=== PATIENT | female | born 1960 | race Caucasian/White ===

== ENCOUNTER 2018-06-28 06:27 | Day surgery (SDC) | payer OTHER ==
[2018-06-28] MEDS ORDERED: Lactated Ringers 1,000 ML IV SCH (06:45)
[2018-06-28] MEDS ORDERED: Lidocaine 2% 100 MG/5 ML Syringe IVPUSH ONE (07:45)
[2018-06-28] MEDS ORDERED: Propofol 200 MG/20 ML SDV IV ONE (07:45)
--- NOTE | 2018-06-28 08:08 | PCM.OPNOTE ---
- General Post-Op/Procedure Note Date of Surgery/Procedure: 06/28/18 Operative Procedure(s): egd with bx Findings: gastritis esophagitis Pre Op Diagnosis: abd pain epigastric Post-Op Diagnosis: gastritis. esophagitis Anesthesia Technique: MAC Primary Surgeon: Ari Reilly Anesthesia Provider: Jonel Mack Pathology: stomach and esophagus Complications: None Condition: Good Free Text/Narrative:: see dictation
--- NOTE | 2018-06-28 09:15 | OR ---
DATE OF OPERATION: 06/28/2018 SURGEON: Ari Reilly MD PROCEDURE PERFORMED: Upper endoscopy with cold forceps biopsy. PREOPERATIVE DIAGNOSIS: Epigastric abdominal pain. POSTOPERATIVE DIAGNOSES: Gastritis and esophagitis. INDICATIONS FOR PROCEDURE: This is a 58-year-old white female who presents with the above-mentioned complaints. She was offered and accepted an EGD. DESCRIPTION OF PROCEDURE: After an excellent IV sedation was administered, the bite block was inserted, the flexible endoscope was passed without difficulty down the patient's esophagus into the stomach. The stomach was insufflated, scope was passed through the pylorus to the second portion of the duodenum, and then slowly withdrawn. The following findings were noted. The duodenum is unremarkable. Stomach especially in the area of the antrum demonstrated marked gastritis. Biopsies and photos were taken. GE junction measured approximately 38 cm. It was noted to be irregular with erythema proximal to this. Circumferential biopsies were taken. The remainder of the esophageal exam was unremarkable. Stomach was deflated. Scope was removed. The patient tolerated the procedure and was taken to recovery in good condition. /[id number] 900 /TELMAL
[2018-06-28 14:36] VITALS: BP 115/71
== END 2018-06-28 09:13 | disposition home or self-care (01) ==
LOC: FB.SDS 06:27
PROVIDERS: ATTEND Surgery
DX: K29.50 Unspecified chronic gastritis without bleeding (principal); K20.9 Esophagitis, unspecified; F41.1 Generalized anxiety disorder; E04.9 Nontoxic goiter, unspecified; E66.9 Obesity, unspecified; Z68.35 Body mass index [BMI] 35.0-35.9, adult; Z79.899 Other long term (current) drug therapy; Z91.040 Latex allergy status; Z91.048 Other nonmedicinal substance allergy status; Z87.891 Personal history of nicotine dependence
CPT/HCPCS: 43239; 88305; 88313; 88342; J2001; J2704; J7120

== ENCOUNTER 2021-04-03 00:52 | Emergency (ER) | payer OTHER ==
[2021-04-03 01:12] VITALS: BP 115/74; PULSE 65
--- NOTE | 2021-04-03 01:19 | EDM.PDOC ---
ED HPI GENERAL MEDICAL PROBLEM - General Stated Complaint: BLOOD TEST Time Seen by Provider: 04/03/21 01:17 Source of Information: Reports: Patient History Limitations: Reports: No Limitations - History of Present Illness INITIAL COMMENTS - FREE TEXT/NARRATIVE: Tish would like a blood alcohol test. She was pulled over due to DUI-and wants a blood test to confirm. She states that she had taken 3 beers earlier. She has no other complaints - Related Data Allergies Allergy/AdvReac Type Severity Reaction Status Date / Time Latex, Natural Rubber Allergy Rash Verified 09/23/15 07:13 METALS Allergy Rash Uncoded 09/23/15 07:13 Home Meds: Home Meds Aspirin [Low Dose Aspirin EC] 81 mg PO DAILY 09/20/15 [History] Calcium Carbonate/Vitamin D3 [Calcium 600 + Vit D 200] 1 each PO DAILY 09/20/15 [History] Citalopram [Citalopram HBr] 10 mg PO DAILY 09/20/15 [History] Multivitamin [Multi-Vitamin Daily] 1 each PO DAILY 09/20/15 [History] hydrOXYzine Pamoate [Hydroxyzine Pamoate] 25 mg PO BID 09/20/15 [History] Acetaminophen [Acetaminophen Extra Strength] 500 mg PO Q4H PRN 06/27/18 [History] Ibuprofen [Advil] 200 - 600 mg PO ASDIRECTED PRN 06/27/18 [History] Omeprazole 20 mg PO DAILY 06/27/18 [History] Zolpidem Tartrate 5 mg PO BEDTIME 06/27/18 [History] buPROPion [buPROPion XL] 150 mg PO DAILY 06/27/18 [History] Past Medical History HEENT History: Reports: Impaired Vision Cardiovascular History: Reports: Blood Clots/VTE/DVT Other Cardiovascular History: DVT OF LEFT LEG Respiratory History: Reports: None Gastrointestinal History: Reports: Colon Polyp Genitourinary History: Reports: None PC ANALYST History: Reports: Other PC ANALYST History: 2 C SECTIONS, HYSTERECTOMY;. IV PARA IV Musculoskeletal History: Reports: Back Pain, Chronic Neurological History: Reports: Migraines Psychiatric History: Reports: Anxiety, Depression Endocrine/Metabolic History: Reports: None Hematologic History: Reports: None Immunologic History: Reports: None Oncologic (Cancer) History: Reports: None Dermatologic History: Reports: None - Infectious Disease History Infectious Disease History: Reports: Chicken Pox - Past Surgical History Head Surgeries/Procedures: Reports: None HEENT Surgical History: Reports: Adenoidectomy, Tonsillectomy GI Surgical History: Reports: Colonoscopy Female Surgical History: Reports: Section, Hysterectomy Social & Family History - Family History Family Medical History: No Pertinent Family History - Caffeine Use Caffeine Use: Reports: Coffee, Soda ED ROS GENERAL - Review of Systems Review Of Systems: Comprehensive ROS is negative, except as noted in HPI. ED EXAM, GENERAL - Physical Exam Exam: See Below Exam Limited By: Intoxication General Appearance: Alert, WD/WN Neurological: Alert, Oriented Psychiatric: Normal Affect Skin Exam: Warm Course - Vital Signs Last Recorded V/S: Last Vital Signs Temp 98.2 F 04/03/21 01:04 Pulse 65 04/03/21 01:04 Resp 16 04/03/21 01:04 BP 115/74 04/03/21 01:04 Pulse Ox 95 04/03/21 01:04 - Orders/Labs/Meds Labs: Laboratory Tests 04/03/21 Range/Units 01:15 Ethyl Alcohol 0.11 H (<0.03) % Departure - Departure Time of Disposition: :19 Disposition: Home, Self-Care 01 Condition: Good Clinical Impression: Elevated ETOH level - Discharge Information Referrals: Deirdre Pearson, EMPLOYMENT COORDINATOR [Primary Care Provider] - Forms: ED Department Discharge Sepsis Event Note (ED) - Evaluation Sepsis Screening Result: No Definite Risk - Problem List & Annotations (1) Elevated ETOH level SNOMED Code(s): 220738228 Code(s): R78.0 - FINDING OF ALCOHOL IN BLOOD Status: Acute - Problem List Review Problem List Initiated/Reviewed/Updated: Yes - Assessment/Plan Plan: Test was done and handed to her.
== END 2021-04-03 01:36 | disposition home or self-care (01) ==
LOC: FB.ED 00:52
DX: R78.0 Finding of alcohol in blood (principal); Y90.5 Blood alcohol level of 100-119 mg/100 ml; Z79.82 Long term (current) use of aspirin; Z79.899 Other long term (current) drug therapy
CPT/HCPCS: 36415; 80307; 99281; 99282

== ENCOUNTER 2024-07-31 17:26 | Emergency (ER) | payer OTHER ==
[2024-07-31 18:14] VITALS: BP 128/68; PULSE 67
[2024-07-31 18:23] LABS: BLOOD UREA NITROGEN,BUN 18 mg/dL (7-18); CALCIUM 9.6 mg/dL (8.6-10.2); CARBON DIOXIDE,CO2 30 mmol/L (21-32); CHLORIDE,CL 102 mmol/L (100-110); CREATININE 0.6 mg/dL (0.55-1.02); EST CRCL DRUG DOSING (CG) 85.24 mL/min; ESTIMATED GFR 100 mL/min (>60); GLUCOSE RANDOM 82 mg/dL (80-116); POTASSIUM,K 4.2 mmol/L (3.5-5.3); SODIUM,NA 140 mmol/L (135-145)
[2024-07-31] MEDS: Iopamidol 755 Mg/ML 100 ML Bottle IV SCH (18:59)
== END 2024-07-31 19:51 | disposition home or self-care (01) ==
LOC: FB.ED 17:26
DX: M54.6 Pain in thoracic spine (principal); Z90.710 Acquired absence of both cervix and uterus; Z79.82 Long term (current) use of aspirin; Z79.899 Other long term (current) drug therapy; Z91.040 Latex allergy status; Z91.048 Other nonmedicinal substance allergy status
CPT/HCPCS: 36415; 71260; 80048; 99284; Q9967

== ENCOUNTER 2024-09-28 15:37 | Emergency (ER) | payer OTHER ==
[2024-09-28 15:55] VITALS: BP 99/54; PULSE 81
== END 2024-09-28 18:02 | disposition home or self-care (01) ==
LOC: FB.ED 15:37
DX: S39.012A Strain of muscle, fascia and tendon of lower back, initial encounter (principal); S16.1XXA Strain of muscle, fascia and tendon at neck level, initial encounter; Z90.710 Acquired absence of both cervix and uterus; Z91.040 Latex allergy status; Z91.048 Other nonmedicinal substance allergy status; Z79.82 Long term (current) use of aspirin; Z79.899 Other long term (current) drug therapy; W00.0XXA Fall on same level due to ice and snow, initial encounter
CPT/HCPCS: 70450; 72040; 72072; 72100; 99283; 99284

== ENCOUNTER 2024-11-12 21:44 | Emergency (ER) | payer OTHER ==
[2024-11-12 23:06] VITALS: BP 146/90; PULSE 80
== END 2024-11-12 23:05 | disposition home or self-care (01) ==
LOC: FB.ED 21:44
DX: S82.001A Unspecified fracture of right patella, initial encounter for closed fracture (principal); Z88.6 Allergy status to analgesic agent; Z88.8 Allergy status to other drugs, medicaments and biological substances; Z90.710 Acquired absence of both cervix and uterus; Z91.040 Latex allergy status; Z91.048 Other nonmedicinal substance allergy status; Z79.82 Long term (current) use of aspirin; Z79.899 Other long term (current) drug therapy; W18.39XA Other fall on same level, initial encounter; Y93.89 Activity, other specified
CPT/HCPCS: 73562-RT; 99283